=== PATIENT | male | born 1975 | race Caucasian/White ===

== ENCOUNTER → 2021-02-06 10:11 | Outpatient (CLI) | payer OTHER, SELFPAY ==
--- NOTE | ~2021-02-06 | XR_ITS ---
XR_[id number]_CR 02/06/2021 10:57 Indication: Neck pain Procedure: 4 view cervical spine Comparison: 07/21/2013 Findings: Vertebral body heights are maintained. There is mild disc narrowing at at C6-7. There is mi ld multilevel uncinate hypertrophy. Lung apices are normal. Odontoid process within normal limits. La teral masses normally aligned. No prevertebral soft tissue swelling. Impression: 1: Mild cervical spondylosis. Reviewed, dictated and finalized at location A. Impression: 1: Mild cervical spondylosis.
== END ==
PROVIDERS: PCP Family Medicine; Visit Provider Physician Assistant Medical
DX: M47.22 Other spondylosis with radiculopathy, cervical region (principal)
CPT/HCPCS: 72040

== ENCOUNTER 2024-06-08 08:56 | Day surgery (SDC) | payer OTHER, SELFPAY ==
[2024-06-08] VITALS (16 sets, daily range): BP systolic 94–193; BP diastolic 58–182; PULSE 66–97; RESP 10–22; TEMP 36.1–36.4; O2SAT 94–100
--- NOTE | ~2024-06-08 | CT_ITS ---
EXAMINATION: CT abdomen pelvis wo con DATE: 06/08/2024 10:23 INDICATION: Left flank pain. Left lower quadrant abdominal pain. TECHNIQUE: Computed tomography (CT) of the abdomen and pelvis was performed without intravenous contr ast. Automated exposure control and iterative reconstruction technique were employed. The dose-length product was 202.87 mGy-cm. COMPARISON: CT abdomen and pelvis 10/04/2019 FINDINGS: The visualized portions of lung bases are clear without pneumonia or pleural effusion. The heart size is normal. No pericardial effusion. There is diffuse hepatic steatosis. The gallbladder, s pleen, pancreas, adrenal glands, and right kidney are normal. There is mild left hydronephrosis. Ther e is a 3 mm stone in proximal left ureter. The prostate is mildly enlarged. There are no dilated loop s of bowel. The appendix is normal. There are no pathologically enlarged lymph nodes. There is no alyssa e intraperitoneal fluid. There is thoracolumbar dextroscoliosis. IMPRESSION: 1. 3 mm stone in proximal left ureter with mild left hydronephrosis. Reviewed, dictated and finalized at location A.
--- NOTE | ~2024-06-08 | XR_ITS ---
XR abdomen/kub 1V Ordering provider: Anjali Tinsley PA-C History: . proximal KIDNEY stone . Comparison: None. FINDINGS: BOWEL: Nonobstructive bowel gas pattern. ORGANOMEGALY: None. SIGNIFICANT PATHOLOGIC CALCIFICATIONS: Possible tiny calcifications in the right kidney. OTHER: No free air is seen under the diaphragm. IMPRESSION: NO ACUTE ABDOMINAL FINDINGS. Reviewed, dictated and finalized at location A.
--- NOTE | ~2024-06-08 | XR_ITS ---
EXAMINATION: XR retrograde pyelo w/stent LT DATE: 06/08/2024 13:50 INDICATION: Left ureteral stone TECHNIQUE: 5 fluoroscopic images of the abdomen and pelvis were obtained during procedure performed anselmo Boyer. Radiologist was not present for the imaging or procedure. The amount of fluoroscopy t barbra used during this procedure was 0.8 minutes. COMPARISON: 06/08/2024 FINDINGS: Small density projects over the left transverse process of L2 on the glass or mirror inspector image potentially represen ting the previous noted left ureteropelvic junction stone. Subsequent images demonstrate retrograde a dvancement of a catheter and wire into the left ureter with the wire extending into an upper pole kacey yx of the left kidney. Contrast injection demonstrates mild left hydronephrosis with abrupt transitio n to decompressed ureter at the ureteropelvic junction likely resulting from the obstructing stone wh ich is unable to be distinguished from the injected contrast. Final image demonstrates placement of a left intraureteral stent with loops formed in the left renal pelvis. The stone is no longer identifi ed sided been extracted or obscured by the contrast. Correlate with procedure note for further detail . IMPRESSION: 1. Fluoroscopy utilized during urologic procedure with possible left UPJ stone extraction and placeme nt of a left intraureteral stent which is in expected position. See procedure note for further detail . Reviewed, dictated and finalized at location A. IMPRESSION: 1. Fluoroscopy utilized during urologic procedure with possible left UPJ stone extraction and placement of a left intraureteral stent which is in expected pos ition. See procedure note for further detail.
--- NOTE | 2024-06-08 09:32 | ED.GENADULT ---
HPI - General Adult General Chief complaint: Urogenital-Male Stated complaint: kidney stone Time Seen by Provider: 06/08/24 09:19 Source: patient Mode of arrival: ambulatory Limitations: no limitations History of Present Illness HPI narrative: Patient is a 49 y/o male who presents to the ED with c/o L flank pain. Patient reports pain began approx 30-35 minutes prior to arrival. Radiates into his L lower abdomen and into his groin/testicle. Has not taken anything for pain. Denies history of similar pain. Denies history of kidney stones. Reports nausea, denies vomiting. Denies fevers. Denies difficulty urinating, states he urinated this morning when he woke up without issue. Denies known hematuria. Related Data Home Medications Medication Instructions Recorded Confirmed sertraline 50 mg tablet 75 mg PO DAILY 12/25/21 12/25/21 Allergies Allergy/AdvReac Type Severity Reaction Status Date / Time fluoxetine Allergy Unknown Unknown Verified 06/08/24 10:16 vilazodone [Viibryd] AdvReac Unknown nausea, Verified 06/08/24 10:16 skin crawling, fatigue Review of Systems Review of Systems: All systems reviewed & are unremarkable except as noted in HPI. All systems reviewed & are unremarkable except as noted in HPI and below PMFSH Social History Social History Smoking status: Never smoker Alcohol intake: never Exam Narrative: GENERAL: Uncomfortable appearing, in moderate acute distress due to pain. Pacing around the ED room, unable to sit still or find comfortable position. HEAD: Normocephalic, atraumatic. RESPIRATORY: Airway patent, respirations nonlabored. Clear to auscultation bilaterally, no rales, rhonchi, wheezing. CARDIOVASCULAR: Tachycardic with regular rhythm without murmurs, rubs, or gallops. ABDOMINAL: Soft, TTP in LLQ, L flank region, +CVA tenderness. MUSCULOSKELETAL: Moves all extremities. No gross deformities. SKIN: Warm, dry, normal color. NEURO: A&O X3. Speech clear. PSYCHIATRIC: Anxious. Normal interaction. Course Vital Signs Vital signs: Vital Signs Pulse Rate 97 06/08/24 09:04 Respiratory Rate 18 06/08/24 09:04 Blood Pressure 193/182 H 06/08/24 09:04 Pulse Oximetry 99 06/08/24 09:04 Temperature 97.2 F L 06/08/24 12:50 Pulse Rate 76 06/08/24 12:50 Respiratory Rate 18 06/08/24 12:50 Blood Pressure 138/83 06/08/24 12:50 Pulse Oximetry 97 06/08/24 12:50 Oxygen Delivery Room Air 06/08/24 12:50 Oxygen Flow Rate 4 06/08/24 12:17 Medical Decision Making MDM Narrative Medical decision making narrative: patient presented to ED with moderate left flank and left-sided abdominal pain, onset approximately 30minutes-1 hour prior to arrival. Patient very uncomfortable appearing upon my evaluation. Unable to sit still on ED stretcher due to pain. Pacing around. Patient denies history of kidney stones, though this is my clinical suspicion. Pain and nausea medicine ordered. Laboratory studies are unremarkable. No leukocytosis. Stable kidney function. Unable to obtain a urine sample at this time due to patient's pain. Patient has required numerous doses of IV pain medicine. Denying significant improvement of pain. Still very uncomfortable appearing. CT scan of abdomen/ pelvis was obtained and showing 3 mm proximal ureteral stone. Mild hydronephrosis noted. Consistent with clinical picture. Given severe pain, discussed case with Urology, Rand Rodriguez SAND CONDITIONER MACHINE, advised will take patient to the OR today. Keep NPO. Obtain KUB. Patient in agreement with plan and surgery. Medical Records Medical records reviewed: Yes I reviewed the external patient's medical records. Vital Signs Vital Signs: Vital Signs Pulse Rate 97 06/08/24 09:04 Respiratory Rate 18 06/08/24 09:04 Blood Pressure 193/182 H 06/08/24 09:04 Pulse Oximetry 99 06/08/24 09:04 Tem
[2024-06-08 09:37] LABS: Basophils Absolute Auto 0.1 K/mm3 (0.0-0.1); Eosinophils Absolute Auto 0.2 K/mm3 (0-0.3); Eosinophils Percent Auto 3.1 % (0-4.4); Hematocrit 43.4 % (42.0-52.0); Hemoglobin 15.2 g/dL (14.0-18.0); Immature Granulocyte Absolute 0.04 K/mm3 (0.00-0.031); Immature Granulocyte Percent A 0.6 % (0-0.5); Lymphocytes Percent Auto 35.5 % (18.3-44.2); Mean Corpuscular Hemoglobin 29.5 pg (26-34); Mean Corpuscular Volume 84.1 fl (80-100); Mean Platelet Volume 9.3 fl (7.4-10.4); Monocytes Absolute Auto 0.6 K/mm3 (0.1-0.6); Neutrophils Absolute Auto 3.2 K/mm3 (1.3-6.7); Neutrophils Percent Auto 50.8 % (45.5-73.1); Platelet Count Result 233 k/mm3 (150-375); Red Blood Count 5.16 M/mm3 (4.6-6.20); Red Cell Distribution Width 11.9 % (11.5-14.5); White Blood Count 6.2 K/mm3 (4.5-10.0)
[2024-06-08] MEDS: HYDROmorphone HCL INJ (*CRX) 1 MG/ML SYR IV PUSH ×3 (09:38→11:30)
[2024-06-08] MEDS: ONDANSETRON INJ 4 MG/2 ML VIAL IV PUSH ×2 (09:38→12:56)
[2024-06-08] MEDS: SODIUM CHLORIDE 0.9% IV 1,000 ML 999 ML IV CONT ×2 (09:40→10:48)
[2024-06-08 09:51] LABS: Anion Gap 12 mmol/L (4-12); Blood Urea Nitrogen 10 mg/dL (9-20); Calcium 9.2 mg/dL (8.4-10.2); Carbon Dioxide 24 mmol/L (22-30); Chloride 96 mmol/L (98-107); Estimated CRCL calculation 66 ml/min; Estimated Glomerular Filt Rate 59; Glucose 111 mg/dL (65-110); Potassium 4.1 mmol/L (3.4-5.0); Sodium 132 mmol/L (137-145)
--- NOTE | 2024-06-08 10:00 | PC.NURSE ---
FORMULA ROOM WORKER AT BEDSIDE TO COLLECT URINE SAMPLE; PT STATES I CAN'T EVEN THINK TO SIT STILL LET ALONE THINK TO PEE FORMULA ROOM WORKER OFFERED TO STRAIGHT CATH PT TO COLLECT URINE ANALYSIS - PT DECLINES AND STATES HE WILL TRY TO URINATE SOON.
[2024-06-08] MEDS: MORPHINE SULFATE (*CRX) 4 MG/ML INJ IV PUSH (10:03)
[2024-06-08] MEDS: TAMSULOSIN HCL 0.4 MG CAPSULE PO (10:48)
--- NOTE | 2024-06-08 12:01 | WPDHPUPDATE1 ---
History and Physical Update Update Date/Time: 06/08/24 12:01 History and Physical has been reviewed, including an updated exam of the patient. There are NO changes in the patient's condition. Risks, benefits, and alternatives have been discussed and questions answered. Patient agrees to proceed with procedure. Proceed with cystoscopy, left retrograde, left stent placement, possible ureteroscopy with stone extraction laser
--- NOTE | 2024-06-08 12:35 | PC.NURSE ---
pt was asked to pee. pt was only able to get a drible.
--- NOTE | 2024-06-08 12:47 | WPDURCON ---
Assessment and Plan Assessment and plan (1) Left ureteral stone: Code(s): N20.1 - Calculus of ureter Status: Acute Assessment and Plan: 3 mm proximal left ureteral stone. Given uncontrolled pain, will proceed with cystoscopy, left ureteroscopy with possible laser lithotripsy/stone extraction, possible left stent placement this afternoon with Dr. Boyer. Discussed procedure with patient and he is agreeable to proceed. Continue NPO diet and analgesics. Urology Consult Note HPI Date Seen: 06/08/24 Requesting Physician: Del Boyer MD Primary Care Provider: Jayme Tenorio, Consult Narrative Narrative: Juan Carlos Perez is a 49 year old male with no prior urologic history who presented to the ER this morning due to sudden onset of left flank pain around 8:30 am. Reports pain started in his back and radiated to his left side and groin. He had associated dry heaves but no vomiting, fever, or chills. Denies dysuria or hematuria. On arrival to the ER, his vital signs were stable and he was afebrile. WBc within normal limits at 6.2. Creatinine 1.3. He has been unable to give a urine sample as of yet. A CT of his abd/pelvis was completed which demonstrated a 3 mm stone in the proximal left ureter with mild left hydronephrosis. Despite analgesics, his pain has been uncontrolled. He is writhing in pain at the time of my evaluation. Review of Systems Review of Systems: All systems reviewed & are unremarkable except as noted in HPI and below [facility] Social History Social History Smoking status: Never smoker Alcohol intake: never Meds Home Medications and Allergies Home Medications Medication Instructions Recorded Confirmed Type sertraline 50 mg tablet 75 mg PO DAILY 12/25/21 12/25/21 History budesonide-formoterol HFA 160 2 inh inhalation BID #10.2 grams 02/01/22 Rx mcg-4.5 mcg/actuation aerosol inhaler (Symbicort) Allergies Allergy/AdvReac Type Severity Reaction Status Date / Time fluoxetine Allergy Unknown Unknown Verified 06/08/24 10:16 vilazodone [Viibryd] AdvReac Unknown nausea, Verified 06/08/24 10:16 skin crawling, fatigue Vital Signs Vital Signs - 24 hr 06/08/24 09:21 06/08/24 09:04 06/08/24 10:56 Temperature 97.5 F L Pulse Rate 90 97 79 Respiratory Rate 18 18 19 Blood Pressure 193/182 H 123/84 Pulse Oximetry 99 99 100 Oxygen Delivery Room Air Oxygen Flow Rate 06/08/24 12:17 06/08/24 11:52 06/08/24 12:01 Temperature Pulse Rate 77 74 Respiratory Rate 22 H 19 Blood Pressure 135/90 127/83 Pulse Oximetry 98 100 99 Oxygen Delivery Nasal Cannula Oxygen Flow Rate 4 06/08/24 12:16 Temperature Pulse Rate 82 Respiratory Rate 21 H Blood Pressure 129/86 Pulse Oximetry 100 Oxygen Delivery Oxygen Flow Rate Exam Narrative: General: Awake, alert, acutely uncomfortable, writhing in pain HEENT: Normocephalic, atraumatic, sclerae anicteric Respiratory: Normal respiratory effort, no accessory muscle use Abdomen: Nondistended, soft Skin: Normal coloration, warm and dry Neurologic: No focal neuro deficits noted Psychiatric: Appropriate mood and affect, judgment and insight intact Results Labs 06/08/24 09:30 06/08/24 09:30 Labs: Short CBC 06/08/24 Range/Units 09:30 WBC 6.2 (4.5-10.0) K/mm3 Hgb 15.2 (14.0-18.0) g/dL Hct 43.4 (42.0-52.0) % Plt Count 233 (150-375) k/mm3 [facility] 06/08/24 09:30 Sodium 132 L Potassium 4.1 Chloride 96 L Carbon Dioxide 24 BUN 10 Creatinine 1.30 Glucose 111 H Calcium 9.2
[2024-06-08] MEDS: LACTATED RINGERS 1,000 ML 30 ML IV CONT ×2 (12:50→15:24)
[2024-06-08] MEDS: HYDROmorphone HCL INJ (*CRX) 1 MG/ML SYR 0.25 MG IV PUSH (12:55)
--- NOTE | 2024-06-08 13:06 | WPDANESEPPF ---
Anes - Initial Pre Proc Eval Procedure: Operation Date: 06/08/24 13:30 Proposed Procedures p Cystoscopy, Left Ureteroscopy, Possible Left Retrograde Pyelogram, Possible Left Stone Extraction, Possible Left Stent Placement, Possible Holmium Laser - Del Boyer MD Date/Time: 06/08/24 13:06 Surgeon: Del Boyer MD Pre Op Diagnosis: kidney stone Patient Data Age: 49 Gender: M Height: 1.8 m Weight: 90.7 kg Last Vital Signs Temp 97.5 F L 06/08/24 09:21 Pulse 82 06/08/24 12:16 Resp 21 H 06/08/24 12:16 BP 129/86 06/08/24 12:16 Pulse Ox 98 06/08/24 12:17 O2 Del Method Nasal Cannula 06/08/24 12:17 O2 Flow Rate 4 06/08/24 12:17 Allergies Allergy/AdvReac Type Severity Reaction Status Date / Time fluoxetine Allergy Unknown Unknown Verified 06/08/24 10:16 vilazodone [Viibryd] AdvReac Unknown nausea, Verified 06/08/24 10:16 skin crawling, fatigue Home Medications Medication Instructions Recorded Confirmed Type sertraline 50 mg tablet 75 mg PO DAILY 12/25/21 12/25/21 History budesonide-formoterol HFA 160 2 inh inhalation BID #10.2 grams 02/01/22 Rx mcg-4.5 mcg/actuation aerosol inhaler (Symbicort) Laboratory Tests 06/08/24 09:30 WBC 6.2 K/mm3 (4.5-10.0) RBC 5.16 M/mm3 (4.6-6.20) Hgb 15.2 g/dL (14.0-18.0) Hct 43.4 % (42.0-52.0) MCV 84.1 fl (80-100) MCH 29.5 pg (26-34) MCHC 35.0 g/dl (32-36) RDW 11.9 % (11.5-14.5) Plt Count 233 k/mm3 (150-375) MPV 9.3 fl (7.4-10.4) Immature Gran % (Auto) 0.6 H % (0-0.5) Neut % (Auto) 50.8 % (45.5-73.1) Lymph % (Auto) 35.5 % (18.3-44.2) Knox % (Auto) 9.0 H % (2.6-8.5) Eos % (Auto) 3.1 % (0-4.4) Baso % (Auto) 1.0 % (0.2-1.2) Lymph # (Auto) 2.20 K/mm3 (0.9-3.2) Knox # (Auto) 0.6 K/mm3 (0.1-0.6) Eos # (Auto) 0.2 K/mm3 (0-0.3) Baso # (Auto) 0.1 K/mm3 (0.0-0.1) Abs Immat Gran (auto) 0.04 H K/mm3 (0.00-0.031) Absolute Neuts (auto) 3.2 K/mm3 (1.3-6.7) Absolute Nucleated RBC 0.000 K/mm3 (0.0-0.012) Nucleated RBC % 0.0 % (0.0-0.2) Sodium 132 L mmol/L (137-145) Potassium 4.1 mmol/L (3.4-5.0) Chloride 96 L mmol/L (98-107) Carbon Dioxide 24 mmol/L (22-30) Anion Gap 12 mmol/L (4-12) BUN 10 mg/dL (9-20) Creatinine 1.30 mg/dL (0.7-1.3) Estim Creat Clear Calc 66 ml/min Estimated GFR 59 (59 - ) Glucose 111 H mg/dL (65-110) Calcium 9.2 mg/dL (8.4-10.2) Patient hx anesthesia problems: other (Pt reports that he woke up during sedation for wisdom teeth and colonoscopy a long time ago. ) Family hx anesthesia problems: none Results Review: All pre-operative results and documents have been reviewed as part of the pre-operative evaluation. [facility] Social History Social History Smoking status: Never smoker Alcohol intake: never Anes - Eval Final PreProcedure Day of Procedure 06/08/24 13:06 Patient weight: overweight Heart: regular rate and rhythm Lungs: clear to auscultation Airway: Mallampati scale class II Neurological: alert and oriented Last oral intake: >/= 8 hours ASA classification: III Emergent: yes Anesthetic plan: proceed Anesthesia type and monitoring: general ETT and standard monitoring Results Review: All pre-operative results and documents have been reviewed as part of the pre-operative evaluation. BRENDAN on CPAP setting 12. Pt w sig pain in ER and preop area despite IV narcotics and now on O2 4 L NC. Informed Consent: The patient's anesthetic plan and its attendant risks and benefits were discussed with the patient/family/POA. Questions were solicited and answers provided to the satisfaction of the patient/family/POA.
[2024-06-08] MEDS: LIDOCAINE HCL 2% GEL UROJET 10 ML PKG MUCOUS MEM (13:12)
[2024-06-08] MEDS: ceFAZolin 2 GM/D5W 50 ML 2 GM/50 ML BAG IVPB (13:26)
--- NOTE | 2024-06-08 13:46 | W.PM.PROC2 ---
Procedure Note - Detailed Date of Procedure 06/08/24 Pre-op Diagnosis left ureteral calculus Post-op Diagnosis Same Procedure Performed Cystoscopy, left retrograde pyelogram, left ureteroscopy, left ureteral stent placement 4.8 Congolese contour Surgeon Del Boyer MD Anesthesia General Findings Extremely tight distal and proximal ureter. Unable to place ureteral scope to the level of the stone Description of Procedure Patient was taken to the operative suite correctly identified. Once anesthesia was obtained was placed in dorsal lithotomy position and prepped and draped usual sterile fashion. Nineteen Congolese scope was inserted the bladder direct vision there were no urethral strictures. Bladder was inspected. No tumors noted. Left ureteral orifice was cannulated with a guidewire. Rigid ureteral scope was then inserted into the distal orifice. His distal ureter was also tight we could not manipulate the scope further. At this point a ureteral access sheath was placed. Mini flexible ureteral scope was then inserted. This proximal ureter was also extremely tight to the point where I could not manipulate the scope to the level of the stone. I placed a 2nd guidewire and tried to pass the scope over the wire but this also was unsuccessful. At this point it was decided that it was best to simply place a stent and dilate the ureter. Pyelogram was performed confirm placement the stent. 4.8 Congolese contour stent was then placed with the proximal end coiled in the renal pelvis and the distal in the bladder. Bladder was drained. 2% viscous lidocaine was inserted into the urethra patient is taken recovery stable condition. Patient will be discharged home with pain meds antibiotics and something for spasms. Will plan on ureteroscopy in a week or 2. This completes dictation please send a copy of op note to my office Estimated Blood Loss 0 Drains Yes Packing No Pathology None sent Complications No immediate complications Condition Stable Disposition PACU
[2024-06-08] MEDS: KETOROLAC 30 MG/ML VIAL (*BKC) IV PUSH (15:24)
[2024-06-08] MEDS: oxyBUTYnin CHLORIDE 5 MG TABLET PO (15:24)
== END 2024-06-08 16:30 | disposition home or self-care (01) ==
LOC: ANHED 12:02 → ANHSURGERY 12:13
PROVIDERS: Emergency Provider Physician Assistant; PCP Family Medicine; Visit Provider Urology
PROC: (CPT 52352; principal; 2024-06-08 13:30)
DX: N13.2 Hydronephrosis with renal and ureteral calculous obstruction (principal); Z79.51 Long term (current) use of inhaled steroids
CPT/HCPCS: 52332; 36415; 74018; 74176; 74420; 80048; 85025; 96361; 96374; 96375; 96376; 99285; A9270; C1769; C1894; C2617; J0330; J0690; J1170; J1885; J2250; J2270; J2405; J2704; J3010; J7030; J7120; Q9966

== ENCOUNTER 2024-06-12 07:43 | Outpatient (CLI) | payer OTHER, SELFPAY | END 2024-06-12 07:44 | disposition home or self-care (01) | LOC: ANHLAB 07:45 | PROVIDERS: PCP Family Medicine; Visit Provider Urology | DX: N20.1 Calculus of ureter (principal) | CPT/HCPCS: 87086 ==

== ENCOUNTER 2024-06-15 01:53 | Day surgery (SDC) | payer OTHER, SELFPAY ==
[2024-06-11 15:04] VITALS: BMI 27.9
--- NOTE | 2024-06-11 15:10 | PC.NURSE ---
Report to the Outpatient Waiting Room, entrance under the green pavilion located off [facility], at time _0730_ on date _[id number]_. Planned Procedure Time: _0930_.? Time changes happen often and if your time is changed the preop area will call you the afternoon before. - You and your visitor will be asked to self-screen and do not enter if you have any COVID symptoms. Please call surgeon if you need to reschedule. - A mask is optional within the hospital at this time. Patients may have clear liquids (water, carbonated beverages, clear teas, apple juice) until 3 hours prior to surgery with a maximum of 20 ounces. - No food from midnight until time of surgery and no smoking Take only the following medications with a SIP of water on the morning of surgery: ___Pain med if needed DO NOT STOP ANY OF YOUR OTHER PRESCRIPTION MEDICATIONS PRIOR TO SURGERY EXCEPT THE FOLLOWING Medications to discontinue per physician None Please no make-up, nail mongolian, hairspray, perfume, deodorant, or body powder the day of surgery.? No jewelry (including any body piercings) or valuables the day of surgery, leave them at home.? Please take a shower or bath the night before, or the morning of, surgery with an antibacterial soap.? Wear comfortable, loose fitting clothing.? - Jewelry must be removed prior to entering the operating room.? Rings and piercings that are not removed may be cut off. - The hospital will not accept responsibility for valuables.? - Please leave all valuables, including medications, at home the day of surgery. If you are going home after surgery, a licensed lokie driver must drive you home.? - NO public transportation without another adult if you receive anesthesia. - We recommend that an adult stay with you for 24 hours following discharge. - We also recommend that you do not drive, make important decision, drink alcoholic beverages, or take any drugs that were not prescribed by your health care provider for at least 24 hours after your discharge time. Follow any additional instructions given to you from your surgeon. Telephone instructions given to __TJ___and asked if any additional questions and then verbalized understanding. Patient advised to call surgeon office or pre surgery nurse liaison [phone] if any additional questions.
[2024-06-15] VITALS (7 sets, daily range): BP systolic 107–135; BP diastolic 71–87; PULSE 53–80; RESP 10–20; TEMP 36.2–36.3; O2SAT 98–100; BMI 27.0
--- NOTE | ~2024-06-15 | XR_ITS ---
EXAMINATION: XR retrograde pyelo w/stent LT DATE: 06/15/2024 9:00 CDT INDICATION: LEFT SIDE STONE, RETRO STENT EXCHANGE . TECHNIQUE: 4 fluoroscopic images of the upper abdomen were obtained during left retrograde pyelograph y and stent exchange, performed by Del Boyer MD. I was not present during the procedure. Fluoroscopy exposure time was 16.1 seconds. Air Kerma 5.40 mGy. DAP 0.48569 mGym2. COMPARISON: 06/08/2024 FINDINGS/IMPRESSION: Fluoroscopic documentation of left retrograde pyelography and stent exchange. Please refer to the ope rative note for complete procedural details . Reviewed, dictated and finalized at location K.
[2024-06-15] MEDS: LACTATED RINGERS 1,000 ML 30 ML IV CONT ×2 (07:30→09:49)
--- NOTE | 2024-06-15 08:34 | WPDHPUPDATE1 ---
History and Physical Update Update Date/Time: 06/15/24 08:34 History and Physical has been reviewed, including an updated exam of the patient. There are NO changes in the patient's condition. Risks, benefits, and alternatives have been discussed and questions answered. Patient agrees to proceed with procedure. Proceed with cystoscopy, left retrograde pyelogram, left ureteroscopy with stone extraction, stent exchange
--- NOTE | 2024-06-15 08:50 | WPDANESEPPF ---
Anes - Initial Pre Proc Eval Procedure: Operation Date: 06/15/24 09:30 Proposed Procedures p Cystoscopy, Left Ureteroscopy, Possible Left Retrograde Pyelogram, Possible Left Stone Extraction, Left Stent Removal/Exchange, Possible Holmium Laser - Del Boyer MD Date/Time: 06/15/24 08:50 Surgeon: Del Boyer MD Pre Op Diagnosis: left ureteral stone Patient Data Age: 49 Gender: M Height: 1.8 m Weight: 87.9 kg Last Vital Signs Temp 97.4 F L 06/15/24 07:30 Pulse 72 06/15/24 07:30 Resp 20 06/15/24 07:30 BP 123/80 06/15/24 07:30 Pulse Ox 99 06/15/24 07:30 O2 Del Method Room Air 06/15/24 07:30 Allergies Allergy/AdvReac Type Severity Reaction Status Date / Time fluoxetine Allergy Unknown Unknown Verified 06/11/24 15:02 vilazodone [Viibryd] AdvReac Unknown nausea, Verified 06/11/24 15:02 skin crawling, fatigue Home Medications Medication Instructions Recorded Confirmed Type sertraline 50 mg tablet 75 mg PO DAILY 12/25/21 06/11/24 History oxybutynin chloride 5 mg tablet 5 mg PO TID PRN bladder spasms #60 06/08/24 06/11/24 Rx tabs tramadol 50 mg tablet 50 mg PO Q6H PRN pain #20 tabs 06/08/24 06/11/24 Rx budesonide-formoterol HFA 160 2 inh inhalation BID PRN Dyspnea 06/11/24 06/11/24 History mcg-4.5 mcg/actuation aerosol inhaler (Symbicort) Patient hx anesthesia problems: none Family hx anesthesia problems: none Results Review: All pre-operative results and documents have been reviewed as part of the pre-operative evaluation. [facility] Social History Social History Smoking status: Never smoker Alcohol intake: never Living arrangements: with family Spiritual care concerns: No Anes - Eval Final PreProcedure Day of Procedure 06/15/24 08:50 Patient weight: overweight Heart: regular rate and rhythm Lungs: clear to auscultation Airway: Mallampati scale class II Neurological: alert and oriented Last oral intake: >/= 8 hours ASA classification: III Emergent: no Anesthetic plan: proceed Anesthesia type and monitoring: general LMA and standard monitoring Results Review: All pre-operative results and documents have been reviewed as part of the pre-operative evaluation. BRENDAN on CPAP setting of 12. Pt feels well today, no N/V or pain. Informed Consent: The patient's anesthetic plan and its attendant risks and benefits were discussed with the patient/family/POA. Questions were solicited and answers provided to the satisfaction of the patient/family/POA.
[2024-06-15] MEDS: ceFAZolin 2 GM/D5W 50 ML 2 GM/50 ML BAG IVPB (09:00)
--- NOTE | 2024-06-15 09:43 | P.OP_ITS ---
Procedure Note - Detailed Date of Procedure 06/15/24 Pre-op Diagnosis left ureteral stone Post-op Diagnosis Other (Stone flushed into lower pole calyx) Procedure Performed Cystoscopy, left retrograde pyelogram, left ureteroscopy, left stent exchange Surgeon Del Boyer MD Anesthesia General Description of Procedure Patient is taken the operative suite correctly identified. Once anesthesia was obtained was placed in dorsal lithotomy position and prepped and draped usual sterile fashion. Nineteen Albanian scope was inserted the bladder. The prior stent was grasped brought out the meatus. Guidewire was inserted through that up to the kidney. Ureteral access sheath was then placed. Mini flexible ureteral scope was inserted. His proximal ureter still somewhat tight but I was still able to manipulate ureteral scope past the proximal ureter into the kidney. I inspected all the calices. It is difficult to get into the lower pole calyx where a small little calcification was seen attached to the papillae. I tried to use a 0 degree basket to retrieve it was a deepthi 6s full. Could not manipulate the scope enough to get to the stone. At this point the procedure was terminated. 4.8 Albanian contour stent was then replaced after a pyelogram was performed to confirm placement. 2% viscous lidocaine was inserted urethra patient is taken recovery stable condition. At this point time will simply recommend removing the stent next week. If the stone becomes symptomatic again with will need to be readdressed hopefully in the ureter. This completes dictation. Please send a copy of op note to my office. Drains Yes Packing No Pathology None sent Complications No immediate complications Condition Stable Disposition PACU
--- NOTE | 2024-06-15 10:13 | SUR.PHASEI ---
Simple mask removed at 1010.
== END 2024-06-15 11:21 | disposition home or self-care (01) ==
PROVIDERS: PCP Family Medicine; Visit Provider Urology
PROC: (CPT 52352; principal; 2024-06-15 09:30)
DX: N20.1 Calculus of ureter (principal); Z79.51 Long term (current) use of inhaled steroids; Z79.891 Long term (current) use of opiate analgesic
CPT/HCPCS: 52332; 74420; C1769; C2617; J0690; J1100; J2003; J2250; J2405; J2704; J3010; J7120; Q9966

== ENCOUNTER 2025-05-04 11:36 | Emergency (ER) | payer OTHER, SELFPAY ==
--- NOTE | ~2025-05-04 | CT_ITS ---
EXAMINATION: CT abd pelvis lumbar wo con DATE: 05/04/2025 13:27 INDICATION: Flank pain. TECHNIQUE: Computed tomography (CT) of the abdomen and pelvis was performed without intravenous contrast. The dose-length product was 599.63 mGy-cm. COMPARISON: CT abdomen pelvis 10/04/2019 and 06/08/2024 FINDINGS: There is a 8 mm subpleural nodule in the right lower lobe and two less than 3 mm pulmonary nodules in the right lower lobe. A chest CT is recommended. Liver, spleen, adrenal glands, pancreas and gallbladder are unremarkable. No renal calculi. No hydronephrosis. Abdominal aorta is not aneurysmal. No free fluid in the abdomen. Bladder is unremarkable. No bladder calculi. No enlarged lymph nodes in the pelvis. Moderate amount of stool. No appendicitis. Mild thickening of the nguyen of the ascending colon. No compression fracture identified in the visualized spine. IMPRESSION: 1. Mild thickening of the nguyen of the ascending colon differential includes incomplete bowel wall distention or colitis. 2.There is a 8 mm subpleural nodule in the right lower lobe and two less than 3 mm pulmonary nodules in the right lower lobe. A chest CT is recommended. EXAMINATION: CT abd pelvis lumbar wo con DATE: 05/04/2025 13:35 CDT INDICATION: Flank pain TECHNIQUE: Computed tomography (CT) of the lumbar spine was performed without intravenous contrast. The dose-length product was 599.63 mGy-cm. COMPARISON: None FINDINGS: Lumbar vertebral body heights and alignment are within normal limits. No compression fracture in the lumbar spine. No sclerotic or destructive bone lesion identified. Evaluation of the spinal canal contents and bilateral neural foramen is limited due to CT technique. IMPRESSION: 1. No fracture in the lumbar spine. If symptoms persist or worsen, consider an MRI of the lumbar spine for further assessment. Reviewed, dictated and finalized at location A. IMPRESSION: 1. Mild thickening of the nguyen of the ascending colon differential includes in complete bowel wall distention or colitis. 2.There is a 8 mm subpleural nodule in the right lower lobe and two less than 3 mm pulmonary nodules in the right lower lobe. A chest CT is recommended. EXAMINATION: CT abd pelvis lumbar wo con DATE: 05/04/2025 13:35 CDT INDICATION: Flank pain TECHNIQUE: Computed tomography (CT) of the lumbar spine was performed without i ntravenous contrast. The dose-length product was 599.63 mGy-cm. COMPARISON: None FINDINGS: Lumbar vertebral body heights and alignment are within normal limits. No compre ssion fracture in the lumbar spine. No sclerotic or destructive bone lesion kailey ntified. Evaluation of the spinal canal contents and bilateral neural foramen is limited due to CT technique.
--- OUTSIDE RECORDS SUMMARY | 2025-05-04 09:27 | XMS_ITS | Encounter Summary ---
Author Organization [facility] Address [address] [place] [address] Care Team Providers Care Excavating Supervisor Name Role Phone Jayme Tenorio MD Primary Care Provider [phone] Aziza Wheat NP Unavailable [phone] Gera Rea MD Unavailable [phone] Del Boyer MD Unavailable [phone] Reason for Referral * Diagnostic Imaging (Routine) - Pending Review Specialty Diagnoses / Procedures Referred By Contac t Referred To Contact Diagnoses Right-sided low back pain with bilateral sciatica, unspecified chronicity Procedures XR Spine Lumbar Ap Lat Flex Ext min 4 Views [facility] [address] [place] [address] Phone: tel: fax: [place] [address] Referral ID Status Reason Start Date Expiration Date V isits Requested Visits Authorized [id number] Pending Review 05/04/2025 06/03/2026 1 1 Reason for Visit * Diagnostic Imaging (Routine) - Pending Review Specialty Diagnoses / Procedures Referred By Contac t Referred To Contact Diagnoses Right-sided low back pain with bilateral sciatica, unspecified chronicity Procedures XR Spine Lumbar Ap Lat Flex Ext min 4 Views Vikas Saeed DC [address] [place] [address] Phone: tel: fax: [address] [address] Referral ID Status Reason Start Date Expiration Date V isits Requested Visits Authorized [id number] Pending Review 05/04/2025 06/03/2026 1 1 Encounter Details Date Type Department Care Team (Latest Contact Info) Description 05/04/2025 9:27 AM CDT Hospital Encounter [address] [address] Right-sided low back pain with bilateral sciatica, unspecified chronicity Social History Tobacco Use Types Packs/Day Years Used Date Smoking Tobacco: Never Passive Smoke Exposure: Never Smokeless Tobacco: Never AUDIT-C Answer Date Recorded Q1: How often do you have a drink containing alc ohol? Monthly or less 12/09/2024 Q2: How many drinks containi ng alcohol do you have on a typical day when you are drinking? 1 or 2 12/09/2024 Q3: How often do you have si x or more drinks on one occasion? 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 Not on file Not on file documented as of this encounter Plan of Treatment Pending Results Name Type Priority Associated Diagnoses Date /Time XR Spine Lumbar Ap Lat Flex Ext min 4 Views Imaging Schedule Routine, Read Routine (OP Routine) Right-sided low back pain with bilateral sciatica, unspecified chronicity 05/04/2025 9:42 AM CDT Scheduled Orders Name Type Priority Associated Diagnoses Orde r Schedule XR Spine Lumbar Ap Lat Flex Ext min 4 Views Imaging Schedule Routine, Read Routine (OP Routine) Right-sided low back pain with bilateral sciatica, unspecified chronicity Once for 1 Occurrences starting 05/04/2025 until 05/04/2025 documented as of this encounter Visit Diagnoses Diagnosis Right-sided low back pain with bilateral sciatica, unspecified chronicity documented in this encounter Care Teams Excavating Supervisor Relationship Specialty Start Date End Date Jayme Tenorio MD [address] [facility] [address] [place] [address] PCP - General Family Medicine 03/11/23 Aziza Wheat NP [address] [facility] [address] [place] [address] Nurse Practitioner Nurse Practitioner 03/11/23 Gera Rea MD [address] [place] [address] Referring Physician Gastroenterology 03/11/23 Del Boyer MD [address] [place] [address] Consulting Physician Urology 12/09/24 documented as of this encounter
--- OUTSIDE RECORDS SUMMARY | 2025-05-04 09:27 | XMS_ITS | Encounter Summary ---
Author Organization [facility] Address [address] [place] [address] Care Team Providers Care Dog License Officer Supervisor Name Role Phone Jayme Tenorio MD Primary Care Provider [phone] Aziza Wheat NP Unavailable [phone] Gera Rea MD Unavailable [phone] Del Boyer MD Unavailable [phone] Reason for Referral * Diagnostic Imaging (Routine) - Pending Review Specialty Diagnoses / Procedures Referred By Contac t Referred To Contact Diagnoses Right-sided low back pain with bilateral sciatica, unspecified chronicity Procedures XR Spine Lumbar Ap Lat Flex Ext min 4 Views [facility] [address] [place] [address] Phone: tel: fax: [place] [address] Referral ID Status Reason Start Date Expiration Date V isits Requested Visits Authorized [id number] Pending Review 05/04/2025 06/03/2026 1 1 Reason for Visit * Diagnostic Imaging (Routine) - Pending Review Specialty Diagnoses / Procedures Referred By Contac t Referred To Contact Diagnoses Right-sided low back pain with bilateral sciatica, unspecified chronicity Procedures XR Spine Lumbar Ap Lat Flex Ext min 4 Views Vikas Saeed DC [address] [place] [address] Phone: tel: fax: [address] [address] Referral ID Status Reason Start Date Expiration Date V isits Requested Visits Authorized [id number] Pending Review 05/04/2025 06/03/2026 1 1 Encounter Details Date Type Department Care Team (Latest Contact Info) Description 05/04/2025 9:27 AM CDT Hospital Encounter [address] [address] Right-sided low back pain with bilateral sciatica, [...] 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 Not on file Not [...] chronicity documented in this encounter Care Teams Dog License Officer Supervisor Relationship Specialty Start Date End Date Jayme Tenorio MD [address] [facility] [address] [place] [address] PCP - General Family Medicine 03/11/23 Aziza Wheat NP [address]rena [facility] [address] [place] [address] Nurse Practitioner Nurse Practitioner 03/11/23 Gera Rea MD [address] [place] [address] Referring Physician Gastroenterology 03/11/23 Del Boyer MD [address] [place] [address] Consulting Physician Urology 12/09/24 documented as of this encounter
--- OUTSIDE RECORDS SUMMARY | 2025-05-04 11:45 | XMS_ITS | Encounter Summary ---
Author Organization [facility] Address [address] [place] [address] Care Team Providers Care Manhole Builder Name Role Phone Jayme Tenorio MD Primary Care Provider [phone] Aziza Wheat NP Unavailable [phone] Gera Rea MD Unavailable [phone] Del Boyer MD Unavailable [phone] Encounter Details Date Type Department Care Team (Late st Contact Info) Description 05/04/2025 11:45 AM CDT Office Visit [facility] Primary Care at [address] [address] Jayme Tenorio MD [address] [place] [address] [address] [place] [address] Arrived Social History Tobacco Use Types Packs/Day Years [...] 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 Not on file Not on file documented as of this encounter Plan of Treatment Not on file documented as of this encounter Visit Diagnoses Not on filedocumented in this encounter Care Teams Manhole Builder Relationship Specialty Start Date End Date Jayme Tenorio MD [address] [facility] [address] [place] [address] PCP - General Family Medicine 03/11/23 Aziza Wheat NP [address] [facility] [address] [place] [address] Nurse Practitioner Nurse Practitioner 03/11/23 Gera Rea MD [address] [facility] [address] [place] [address] Referring Physician Gastroenterology 03/11/23 Del Boyer MD [address] [place] [address] Consulting Physician Urology 12/09/24 documented as of this encounter
--- OUTSIDE RECORDS SUMMARY | 2025-05-04 11:45 | XMS_ITS | Encounter Summary ---
Author Organization [facility] Healthcare Address [address] [place] [address] Care Team Providers Care Hand Wrapper Operator Name Role Phone Jayme Tenorio MD Primary Care Provider [phone] Aziza Wheat NP Unavailable [phone] Gera Rea MD Unavailable [phone] Del Boyer MD Unavailable [phone] Encounter Details Date Type Department Care Team (Late st Contact Info) Description 05/04/2025 11:45 AM CDT Office Visit [facility] Primary Care at [address] [address] Jayme Tenorio MD [address] [place] [address] [address] [place] [address] Arrived Social History Tobacco Use [...] 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 Not on file Not on file documented as of this encounter Plan of Treatment Not on file documented as of this encounter Visit Diagnoses Not on filedocumented in this encounter Care Teams Hand Wrapper Operator Relationship Specialty Start Date End Date Jayme Tenorio MD [address] [facility] [address] [place] [address] PCP - General Family Medicine 03/11/23 Aziza Wheat NP [address]rena [facility] [address] [place] [address] Nurse Practitioner Nurse Practitioner 03/11/23 Gera Rea MD [address] [facility] [address] [place] [address] Referring Physician Gastroenterology 03/11/23 Dle Boyer MD [address] [place] [address] Consulting Physician Urology 12/09/24 documented as of this encounter
--- OUTSIDE RECORDS SUMMARY | 2025-05-04 12:06 | XMS_ITS | Patient Health Record ---
Author Organization [facility] [place] Address [address] [facility] [facility] [address] [place] [address] Care Team Providers Care Traction Power Engineer Name Role Phone Jayme Tenorio MD Primary Care Provider Unavail able Aziza Wheat Unavailable [phone] Sean Rojas Unavailable [phone] Allergies No Known Allergies Results Component Value Reference Range Notes UDT Reviewed date:10/19/2024 01:46:28 PM Interpretation: Performing Lab: Notes/Report: THC N 0 - 50 ng/ml Cocaine N 0 - 300 ng/ml Amphetamine N 0 - 1000 ng/ml Buprenorphine (BUP) N 0 - 10 ng/ml Secobarbital (Bar) N 0 - 300 ng/ml Oxazepam (BZO) N 0 - 300 ng/ml 2-ptoeyphmsy-8,6-zciyztxp-0,3-diphenylpyrrolidine (RADHA P) N 0 - 300 ng/ml Methamphetamine (MET) N 0 - 1000 ng/ml Methylenedioxymethamphetamine (MDMA) N 0 - 500 ng/ml Morphine (MOP 300/[id number]) N 0 - 300 ng/ml Methadone (MTD) N 0 - 300 ng/ml Phencyclidine (PCP) N 0 - 25 ng/ml Nortriptyline (TCA) N 0 - 1000 ng/ml Oxycodone N 0 - 300 ng/ml x N 0 - 300 ng/ml Reason For Referral No Information Medications Medication SIG (Take, Route, Frequency, Duration) Notes Start Date End Date Status hydrOXYzine Pamoate 25 MG Capsule 1 capsule Orally three times a day; Duration: 90 days As needed PRN Active Sertraline HCl 50 MG Tablet 1 tablet Ora l Once a day; Duration: 90 days Active Sertraline HCl 25 MG Tablet 1 tablet Ora l Once a day; Duration: 90 days Active Immunizations Vaccine Route Administration Date Status Comme nts Tdap Unknown 06/11/2023 Administered Novel [id number], preservative free Unknown 06/02/2020 Administered Moderna Covid-19 Vaccine 1st dose Unknown 12/11/2020 Ad ministered Social History Tobacco Use: Social History Observation Description Date Details (start date - stop date) Never Smoker NA - NA Sex Assigned At : Social History Observation Description Sex Assigned At Male Social History Miscellaneous: Social Info Question Answer Notes Safety issues: Are there any firearms in the house? Ye s Social History Social Info Question Answer Notes Household: Marital Status: Number of Adults in household: 2 Number of Children in Household: 1 Level of Education: Finished College Household: Social Info Question Answer Notes Household Marital status: Marital status of the child's parents: Any household tobacco use? No Any household pets? Yes Drug/Alcohol: Social Info Question Answer Notes Drugs Have you used drugs other than those for medical reasons in the past 12 months? No AUDIT-C (Standard) Points 2 Did you have a drink containing alcohol in the p ast year? Yes How often did you have six or more drinks on one occasion in the past year? Never (0 point) How many drinks did you have on a typical day when you were drinking in the past year? 1 or 2 drinks (0 point) How often did you have a drink containing alcohol in the past year? Monthly or less (1 point) Tobacco Use: Social Info Question Answer Notes Tobacco Control (Standard) Tobacco use: Nonsmoker Additional Findings: Tobacco non-user Current no nsmoker Additional Details Category Social Info Options Details Miscellaneous: Occupation: Ground Transportation Operator Migrated Social History Migrated Social History Alcohol Intake: None 12/10/2021,Tobacco Years: Never smoker 07/14/2018 Drug/Alcohol: Do you smoke marijuana? Den ies Do you drink alcohol? No Problems Problem Type SNOMED Code ICD Code Onset Dates Problem Status W/U Status Risk Notes Problem Mild recurrent major depression (39933492) Major depressive disorder, recurrent, mild (F33.0) 08/08/20 Active confirmed Problem Generalized anxiety disorder (85438896) Generalized anxiety disorder (F41.1) 08/08/20 Active confirmed Problem Screening for cardiovascular system disease (898040899) Encounter for screening for cardiovascular disorders (Z13.6) Active confirmed Problem Long-term current use of drug therapy (449914506) Other equipment operator intermodal yard (current) drug therapy (Z79.899) 08/08/20 Active confirmed Problem Generalized anxiety disorder (59098649) GEMA (generalized anxiety disorder) (F41.1) Active confirmed Problem Moderate recurrent major depression (32728677) MDD (major depressive disorder), recurrent episode, moderate (F33.1) Active confirmed Problem Panic disorder (402375139) Panic disorder (F41.0) Active confirmed Problem Depression screening negative (652725581261888) Negative depression screening (Z13.31) Active confirmed Vital Signs Heart Rate 72 /min 01/18/2025 Height-cm 180.34 cm 01/18/2025 Blood pressure diastolic 86 mm Hg 01/18/2025 Weight-kg 95.16 kg 01/18/2025 Height 71.00 in 01/18/2025 Blood pressure systolic 124 mm Hg 01/18/2025 Weight 209.8 lbs 01/18/2025 BMI 29.26 kg/m2 01/18/2025 Encounters Encounter Location Date Provider Diagnosis [facility] [place] [address] [place] [address] 10/19/2024 Sean Rojas MDD (major depressiv e disorder), recurrent episode, moderate F33.1 and GEMA (generalized anxiety disorder) F41.1 [facility] [place] [facility] [address] [place] [address] 01/18/2025 Aziza Wheat Negative depression screening Z13.31 ; Major depressive disorder, recurrent, mild F33.0 ; Generalized anxiety disorder F41.1 ; Other equipment operator intermodal yard (current) drug therapy Z79.899 ; Encounter for screening for cardiovascular disorders Z13.6 and Panic disorder F41.0 Assessments Encounter Date Diagnosis (ICD Code) Assessment Notes Treatment Notes Treatment Clinical Notes Section Notes 10/19/2024 GEMA (generalized anxiety disorder) (ICD-10 - F41.1) Assessment and plan reviewed with patient Call for problems with medication, side effects or need for dosage change Compliance issues reviewed Discussed the risks/benefits of this medication Discussed medication side effects Return if symptoms worsen Treatment options reviewed. discussed that it can take weeks to see full therapeutic effects of psychotropic medications. discussed when to seek emergency services. discussed crisis prevention hotline 425. 10/19/2024 MDD (major depressive disorder), recurrent episode, moderate (ICD-10 - F33.1) 01/18/2025 Major depressive disorder, recurrent, mild (ICD-10 - F33.0) 1. depression Sertraline 75 mg daily 2. Anxiety Sertraline 75 mg daily 3. Panic Sertraline 75 mg daily Vistaril 25 mg daily PRN and may take up to three times a day PRN patient reported taken few times educated on all medications, benefits, side effects and risk, and educated on depression, anxiety, and ADHD, mood d/o and educated on compliance of medications, metabolic and movement d/o education appointment is, continue therapy discussion with patient about course of treatment and patient instructions. education on serotonin syndrome SSRI/SNRI side effects discussed including but not limited to, gastric upset, nausea, vomiting, diarrhea and/or constipation, weight changes, sexual side effects including loss of libido, increased suicidal thoughts/behavi ors in children and young adults, and serotonin syndrome. Medication Management and Follow-Up - Plan: - Schedule follow-up appointments every 1-3 months to monitor the patient's response to the medication regimen. - Reinforce the importance of avoiding recreational drug use due to potential neurotoxicity and interactions with prescribed medications. 01/18/2025 Negative depression screening (ICD-10 - Z13.31) 1. depression Sertraline 75 mg daily 2. Anxiety Sertraline 75 mg daily 3. Panic Sertraline 75 mg daily Vistaril 25 mg daily PRN and may take up to three times a day PRN patient reported taken few times educated on all medications, benefits, side effects and risk, and educated on depression, anxiety, and ADHD, mood d/o and educated on compliance of medications, metabolic and movement d/o education appointment is, continue therapy discussion with patient about course of treatment and patient instructions. education on serotonin syndrome SSRI/SNRI side effects discussed including but not limited to, gastric upset, nausea, vomiting, diarrhea and/or constipation, weight changes, sexual side effects including loss of libido, increased suicidal thoughts/behavi ors in children and young adults, and serotonin syndrome. Medication Management and Follow-Up - Plan: - Schedule follow-up appointments every 1-3 months to monitor the patient's response to the medication regimen. - Reinforce the importance of avoiding recreational drug use due to potential neurotoxicity and interactions with prescribed medications. 01/18/2025 Generalized anxiety disorder (ICD-10 - F41.1) 1. depression Sertraline 75 mg daily 2. Anxiety Sertraline 75 mg daily 3. Panic Sertraline 75 mg daily Vistaril 25 mg daily PRN and may take up to three times a day PRN patient reported taken few times educated on all medications, benefits, side effects and risk, and educated on depression, anxiety, and ADHD, mood d/o and educated on compliance of medications, metabolic and movement d/o education appointment is, continue therapy discussion with patient about course of treatment and patient instructions. education on serotonin syndrome SSRI/SNRI side effects discussed including but not limited to, gastric upset, nausea, vomiting, diarrhea and/or constipation, weight changes, sexual side effects including loss of libido, increased suicidal thoughts/behavi ors in children and young adults, and serotonin syndrome. Medication Management and Follow-Up - Plan: - Schedule follow-up appointments every 1-3 months to monitor the patient's response to the medication regimen. - Reinforce the importance of avoiding recreational drug use due to potential neurotoxicity and interactions with prescribed medications. 01/18/2025 Other [facility] (current) drug therapy (ICD-10 - Z79.899) 1. depression Sertraline 75 mg daily 2. Anxiety Sertraline 75 mg daily 3. Panic Sertraline 75 mg daily Vistaril 25 mg daily PRN and may take up to three times a day PRN patient reported taken few times educated on all medications, benefits, side effects and risk, and educated on depression, anxiety, and ADHD, mood d/o and educated on compliance of medications, metabolic and movement d/o education appointment is, continue therapy discussion with patient about course of treatment and patient instructions. education on serotonin syndrome SSRI/SNRI side effects discussed including but not limited to, gastric upset, nausea, vomiting, diarrhea and/or constipation, weight changes, sexual side effects including loss of libido, increased suicidal thoughts/behavi ors in children and young adults, and serotonin syndrome. Medication Management and Follow-Up - Plan: - Schedule follow-up appointments every 1-3 months to monitor the patient's response to the medication regimen. - Reinforce the importance of avoiding recreational drug use due to potential neurotoxicity and interactions with prescribed medications. 01/18/2025 Encounter for screening for cardiovascular disorders (ICD-10 - Z13.6) 1. depression Sertraline 75 mg daily 2. Anxiety Sertraline 75 mg daily 3. Panic Sertraline 75 mg daily Vistaril 25 mg daily PRN and may take up to three times a day PRN patient reported taken few times educated on all medications, benefits, side effects and risk, and educated on depression, anxiety, and ADHD, mood d/o and educated on compliance of medications, metabolic and movement d/o education appointment is, continue therapy discussion with patient about course of treatment and patient instructions. education on serotonin syndrome SSRI/SNRI side effects discussed including but not limited to, gastric upset, nausea, vomiting, diarrhea and/or constipation, weight changes, sexual side effects including loss of libido, increased suicidal thoughts/behavi ors in children and young adults, and serotonin syndrome. Medication Management and Follow-Up - Plan: - Schedule follow-up appointments every 1-3 months to monitor the patient's response to the medication regimen. - Reinforce the importance of avoiding recreational drug use due to potential neurotoxicity and interactions with prescribed medications. 01/18/2025 Panic disorder (ICD-10 - F41.0) 1. depression Sertraline 75 mg daily 2. Anxiety Sertraline 75 mg daily 3. Panic Sertraline 75 mg daily Vistaril 25 mg daily PRN and may take up to three times a day PRN patient reported taken few times educated on all medications, benefits, side effects and risk, and educated on depression, anxiety, and ADHD, mood d/o and educated on compliance of medications, metabolic and movement d/o education appointment is, continue therapy discussion with patient about course of treatment and patient instructions. education on serotonin syndrome SSRI/SNRI side effects discussed including but not limited to, gastric upset, nausea, vomiting, diarrhea and/or constipation, weight changes, sexual side effects including loss of libido, increased suicidal thoughts/behavi ors in children and young adults, and serotonin syndrome. Medication Management and Follow-Up - Plan: - Schedule follow-up appointments every 1-3 months to monitor the patient's response to the medication regimen. - Reinforce the importance of avoiding recreational drug use due to potential neurotoxicity and interactions with prescribed medications. 10/19/2024 Other Learning About Depression Screening material was printed, Hydroxyzine material was published 1. Generalized Anxiety Disorder (GEMA) - GEMA-7: 6 - Patient reports increased anxiety with a score of 8/10, feeling on edge of panic attack. - Missed three recent therapy sessions, potentially contributing to anxiety. - Plan: a. Prescribe hydroxyzine as needed up to three times daily for anxiety. b. Educate patient on medication effects and potential side effects. c. Encourage resuming regular therapy sessions with Joaquín Szymanski. d. refill sertraline for 90-days 2. Major Depressive Disorder (MDD) - PHQ-9: 4 - BDI: 21 - Patient reports moderate depression with a score of 6-7/10, likely situational. - Plan: a. Continue sertraline 50 mg and 25 mg. b. Provide 90-day supply to improve medication adherence. c. Monitor depressive symptoms and adjust treatment plan as needed during follow-ups. d. continue therapy sessions with Joaquín Szymanski. 3. Irritable Bowel Syndrome (IBS) - Patient reports history of IBS since age 25, linked to anxiety and depression. - Plan: a. Educate patient on connection between IBS and anxiety/depres samantha. b. Encourage tracking IBS episodes and their correlation with mood changes. c. Recommend discussing IBS management with primary care provider or gastroenterolo gist. 4. Sleep disturbances - Patient reports waking up earlier than usual and difficulty falling back asleep. - Plan: a. Encourage practicing good sleep hygiene. b. Consider discussing sleep issues with therapist. c. Monitor sleep disturbances during follow-up appointments. 5. Medication management - Patient reports running low on sertraline 25 mg and 50 mg. - Plan: a. Refill sertraline prescription with 90-day supply. b. Send prescription to patient's preferred pharmacy ([facility]). c. initiate hydroxyzine 25 mg TID PRN. 6. Follow-Up - Schedule follow-up appointment in three months. - Assess progress and adjust treatment plan as needed. - Encourage maintaining regular therapy sessions with therapist. Plan Of Treatment No Information Insurance Providers Payer Name Payer Address Payer Phone Subscriber Number Group Number Insured Name Patient Relationship to Insured Coverage Start Date Coverage End Date [facility] [address] [place] [address] [id number] ARIN HAMILTON Spouse - patient is the spouse of the insured Medical (General) History Medical History History ICD Code Problems: Generalized anxiety disorder Long-term drug therapy Major depressive disorder Past Psychiatric History: Anxiety Disord er,Major Depressive Episode irritable bowel syndrome
--- OUTSIDE RECORDS SUMMARY | 2025-05-04 12:06 | XMS_ITS | Encounter Summary ---
Author Organization [facility] Healthcare Address [address] [place] [id number] Care Team Providers Care Orchestra Director Name Role Phone Jayme Tenorio MD Primary Care Provider [phone] Aziza Wheat NP Unavailable [phone] Gera Rea MD Unavailable [phone] Del Boyer MD Unavailable [phone] Reason for Visit * Reason Onset Date Comments Back Pain 04/30/2025 Encounter Details Date Type Department Care Team (Late st Contact Info) Description 05/04/2025 Nurse Triage [facility] Primary Care at [address] [address] Venecia Velazquez RN Social History Tobacco Use Types Packs/Day Years [...] 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 Pt was seen by his chiropractor this morning and was sent to have x-rays. Pt is currently sitting in the waiting room at Dr Tenorio's office but was advised to contact [employer] [employer] for evaluation. Pt is able to walk and bear weight with increased pain. Pain radiates down R leg and into groin area at times. Pt denies numbness and tingling. Pt states pain does not feel the same as kidney stone pain. SDA scheduled at [address] Tenorio. Pt is comfortable with the plan and will call with worsening sx's. Care advice given including Tylenol/Ibuprofen as directed and ice/heat to area. Pt verbalized understanding. Disposition See Today in Office Reason for Disposition SEVERE back pain (e.g., excruciating, unable to do any normal activities) and not improved after pain medicine and CARE ADVICE Protocols Used Back [id number]-MQ * Telephone Encounter - Venecia Velazquez RN - 05/04/2025 9:33 AM CDT Regarding: Severe lower back pain ----- Message from Arielle Mace sent at 05/04/2025 9:33 AM CDT ----- Symptom Based Call Chief Complaint(s): Severe lower back pain Duration: Friday got worse yesterday What type of symptom(s) is the patient experiencing? Red Flag. Is the patient concerned they are experiencing a medical emergency requiring an ambulance? No Additional Comments: Pt called to see if he can get in for an appt today or see if pain meds can besent in.He has been experiencing severe back pain since Friday can hardly walk. Currently was at chiropractor they would not touch him they sent him for x-rays. Which he is getting currently he stated he may not answer the first time if he is in x-ray. Does message need to be routed? Yes-Action Needed documented in this encounter Plan of Treatment Not on file documented as of this encounter Visit Diagnoses Not on filedocumented in this encounter Care Teams Orchestra Director Relationship Specialty Start Date End Date Jayme Tenorio MD [address] [facility] [address] [place] [address] PCP - General Family Medicine 03/11/23 Aziza Wheat NP [address] [facility] [address] [place] [address] Nurse Practitioner Nurse Practitioner 03/11/23 Gera Rea MD [address] [facility] [address] [place] [address] Referring Physician Gastroenterology 03/11/23 Del Boyer MD [address] [place] [address] Consulting Physician Urology 12/09/24 documented as of this encounter
--- OUTSIDE RECORDS SUMMARY | 2025-05-04 12:06 | XMS_ITS | Clinical Summary ---
Author Organization [facility] [place] [address] [place] Address [address] [place] [address] Care Team Providers Care Track Dresser Name Role Phone Jayme Tenorio MD Primary Care Provider [phone] Aziza Wheat NP Unavailable [phone] Gera Rea MD Unavailable [phone] Del Boyer MD Unavailable [phone] Allergies No known active allergies Medications sertraline (ZOLOFT) 25 mg tablet 01/21/2023 Active sertraline (ZOLOFT) 50 mg tablet 01/21/2023 Active hydrOXYzine (VISTARIL) 25 mg capsule TAKE 1 CAPSULE BY MOUTH THREE TIMES DAILY NEEDED Active Active Problems Problem Noted Date Diagnosed Date GEMA (generalized anxiety disorder) 12/09/2024 MDD (major depressive disord er), recurrent episode, moderate 12/09/2024 Ureteral stricture, left 12/09/2024 Calculus of kidney 12/09/2024 Irritable bowel syndrome without diarrhea 2022 Assessment & Plan (06/13/2023 10:03 PM CDT): Viberzi trial May use imodium 2 mg before meals and PRN when in stressful situations, but that should be obviated by the Viberzi. Add probiotic to regimen Encouraging higer-fiber intake as well Peppermint oil is gastric supplement with some efficacy with IBS, I would encourage that one as well Encounter for medical examination to establish c are 03/11/2023 Assessment & Plan (03/17/2023 11:42 AM CDT): A(n) initial well visit to establish care has been performed today. Juan Carlos Perez is not up to date on screening tests. He is in need of Colon cancer screening and Cholesterol screening. He is not up to date on needed preventative vaccinations; He is in need of Covid-19 (booster). We discussed healthy lifestyle habits, educational material has been given. Medications reviewed, changes documented as per the medical record and discussed with patient along with risks vs benefits. Return in 3 months Encounters Date Type Department Care Team Description 05/04/2025 11:45 AM CDT Office Visit [facility] Primary Care at [address] [address] Jayme Tenorio MD Arrived 05/04/2025 9:27 AM CDT Hospital Encounter [address] [address] Right-sided low back pain with bilateral sciatica, unspecified chronicity 05/04/2025 Nurse Triage [facility] Primary Care at [address] [address] Venecia Velazquez RN from Last 3 Months Immunizations Immunization Administration Dates Next Due Influenza, Quadrivalent, Spl it, Preservative Free, Intramuscular 06/02/2020 Influenza, Unspecified 12/10/2023(Deferr ed: Patient Refused),09/15/2022(Deferred: Patient Refused),09/15/2021(Deferred: Patient Refused) Tdap 06/11/2023 Surgical History Surgery Date Site/Laterality Comments URETERAL STENT PLACEMENT 09/15/2023 - 09/14/2024 Medical History Medical History Date Comments Depression Anxiety Irritable bowel syndrome 1998 diarrhe a-predominant Ureteral stricture, left 12/09/2024 Calculus of kidney 12/09/2024 Social History Tobacco Use Types Packs/Day Years [...] 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 Not on file Not on file Obstetrics History Last Filed Vital Signs Vital Sign Reading Time Taken Comments Blood Pressure 130/80 12/09/2024 8:14 AM CDT Pulse 72 12/09/2024 8:14 AM CDT Temperature 36.4 C (97.5 F) 12/09/2024 8:14 AM CDT Respiratory Rate 16 12/09/2024 8:14 AM CDT Oxygen Saturation 96% 12/09/2024 8:14 AM CDT Inhaled Oxygen Concentration - - Weight 94.8 kg (209 lb) 12/09/2024 8:14 AM CDT Height 180.3 cm (5' 11) 12/09/2024 8:14 AM CDT Body Mass Index 29.15 12/09/2024 8:14 AM CDT Plan of Treatment Health Maintenance Due Date Last Done Comments Regular Well Visit/Exam 18-64 12/09/2025 12/09/2024, 03/11/2023 Depression Screening 05/04/2026 05/04/2025, 12/09/2024, 04/07/2024, Additional history exists Colon Cancer Screening-Colonoscopy 10/02/2026 10/02/2016 DTaP/Tdap/Td Vaccine (3 - Td or Tdap) 06/11/2033 06/11/2023, 01/05/2013 Influenza Vaccine Discontinued 06/02/2020 Covid-19 Vaccine Discontinued 01/02/2021, , 12/11/2020 Hepatitis B Screening Completed 12/09/2024 Hepatitis C Screening Completed 12/09/2024 Pneumococcal vaccine <65 Aged Out No longer eligible based on patient's age to complete this topic Procedures Procedure Name Priority Date/Time Associated Diagnosis Comments HEPATITIS C ANTIBODY Routine 12/09/2024 12:00 PM CDT Need for hepatitis C screening test COLONOSCOPY Routine 10/02/2016 from Last 3 Months or Most Recently Relevant to Health Maintenance Results * Hepatitis C antibody Blood (12/09/2024 12:00 PM CDT) Hep C Ab Nonreactive Nonreactive Comment: Interpretive Data Nonreactive: Antibodies to HCV not detected. Does NOT exclude the possibility of recent exposure to HCV. Equivocal: Equivocal for HCV antibodies. Supplemental molecular testing will be automatically performed to determine infection status in accordance with current CDC screening recommendations. Reactive: Positive for HCV antibodies. This may represent current or past HCV infection. Supplemental molecular testing will be automatically performed to determine current infection status in accordance with current CDC screening recommendations. Interpretive data was last revised on 2019. Blood 12/09/2024 12:0 0 PM CDT 12/09/2024 7:00 PM CDT Jayme Tenorio MD LAB MICROBIOLOGY - GENERAL ORDERABLES Final Result [facility] [id number] [facility] [place] [address] * COLONOSCOPY (10/02/2016) Scribed Colonoscopy Abnormal 10/02/2016 Historical Provider HEALTH MAINTENANCE Final Result from Last 3 Months or Most Recently Relevant to Health Maintenance Insurance [facility] Care Teams Track Dresser Relationship Specialty Start Date End Date Jayme Tenorio MD [address] [facility] [address] [place] [address] PCP - General Family Medicine 03/11/23 Aziza Wheat NP [address] [place] [address] Nurse Practitioner Nurse Practitioner 03/11/23 Gera Rea MD [address] [place] [address] Referring Physician Gastroenterology 03/11/23 Del Boyer MD [address] [place] [id number] Consulting Physician Urology 12/09/24
[2025-05-04 12:17] VITALS: BP 123/89; PULSE 80; RESP 20; TEMP 37.2; O2SAT 99
--- OUTSIDE RECORDS SUMMARY | 2025-05-04 13:19 | XMS_ITS | Clinical Summary ---
Author Organization [facility] [place] [address] [place] Address [address] [place] [phone] Care Team Providers Care Cabinet Worker Name Role Phone Jayme Tenorio MD Primary Care Provider [phone] Aziza Wheat NP Unavailable [phone] Gera Rea MD Unavailable [phone] Del Boyer MD Unavailable [phone] Allergies No known active allergies Medications sertraline [...] Description 05/04/2025 11:45 AM CDT Office Visit [facility] Primary Care at [address] [phone] Jayme Tenorio MD Arrived 05/04/2025 9:27 AM CDT Hospital Encounter [address] [address] Right-sided low back pain with bilateral sciatica, unspecified chronicity 05/04/2025 Nurse Triage [facility] Primary Care at [address] [phone] Venecia Velazquez RN from Last 3 Months [...] 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 [...] LAB MICROBIOLOGY - GENERAL ORDERABLES Final Result [facility] [address] [facility] Department [place] [address] * COLONOSCOPY (10/02/2016) Scribed Colonoscopy Abnormal 10/02/2016 Historical Provider HEALTH MAINTENANCE Final Result from Last 3 Months or Most Recently Relevant to Health Maintenance Insurance [facility] PLUS [facility] PL[facility] Care Teams Cabinet Worker Relationship Specialty Start Date End Date Jayme Tenorio MD [address] [facility] [address] [place] [address] PCP - General Family Medicine 03/11/23 Aziza Wheat NP [address] [place] [address] Nurse Practitioner Nurse Practitioner 03/11/23 Gera Rea MD [address] [place] [address] Referring Physician Gastroenterology 03/11/23 Del Boyer MD [address] [place] [id number] Consulting Physician Urology 12/09/24
--- OUTSIDE RECORDS SUMMARY | 2025-05-04 13:20 | XMS_ITS | Encounter Summary ---
Author Organization [facility] Address [address] [place] [address] Care Team Providers Care Esthetics Instructor Name Role Phone Jayme Tenorio MD Primary Care Provider [phone] Aziza Wheat NP Unavailable [phone] Gera Rea MD Unavailable [phone] Del Boyer MD Unavailable [phone] Reason for Visit * Reason Onset Date Comments Back Pain 04/30/2025 Encounter Details Date Type Department Care Team (Late st Contact Info) Description 05/04/[address] 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 Pt is able to walk [...] medicine and CARE ADVICE Protocols Used Back [id number] * Telephone Encounter - Venecia Velazquez RN [...] on filedocumented in this encounter Care Teams Esthetics Instructor Relationship Specialty Start Date End Date Jayme Tenorio MD [address] [facility] [address] [place] [address] PCP - General Family Medicine 03/11/23 Aziza Wheat NP [address] [facility] [address] [place] [address] Nurse Practitioner Nurse Practitioner 03/11/23 Gera Rea MD [address] [facility] [address] [place] [address] Referring Physician Gastroenterology 03/11/23 Del Boyer MD [address] [place] [address] Consulting Physician Urology 12/09/24 documented as of this encounter
[2025-05-04] MEDS: dexAMETHasone SOD PHOS INJ 10 MG/ML 1 ML VIAL IV PUSH (13:34)
[2025-05-04] MEDS: MORPHINE SULFATE (*CRX) 4 MG/ML INJ IV PUSH (13:34)
[2025-05-04] MEDS: LIDOCAINE 5% PATCH 1 PATCH TRANSDERM (13:35)
[2025-05-04 13:36] LABS: Hematocrit 41.6 % (42.0-52.0); Hemoglobin 14.3 g/dL (14.0-18.0); Immature Granulocyte Percent A 0.6 % (0-0.5); Lymphocytes Absolute Auto 1.16 K/mm3 (0.9-3.2); Mean Corpuscular HGB Conc 34.4 g/dl (32-36); Mean Corpuscular Hemoglobin 29.0 pg (26-34); Mean Corpuscular Volume 84.4 fl (80-100); Nucleated Red Blood Cells Absolute Auto 0.000 K/mm3 (0.0-0.012); Nucleated Red Blood Cells Perc 0.0 % (0.0-0.2); Platelet Count Result 180 k/mm3 (150-375); Red Blood Count 4.93 M/mm3 (4.6-6.20); White Blood Count 4.7 K/mm3 (4.5-10.0)
[2025-05-04 13:41] LABS: Add Urine Microscopic? NO; Appearance Urine Clear (Clear); Glucose Urine UA Negative (Negative); Leukocyte Esterase Ur Negative LEU/UL (Negative); Nitrate Urine Negative (Negative); Specific Grav Ur 1.006 (1.001-1.035)
[2025-05-04 13:42] LABS: Alanine Aminotransferase 34 U/L (6-50); Albumin Level 4.5 g/dL (3.5-5.1); Alkaline Phosphatase 69 U/L (38-126); Anion Gap 4 mmol/L (4-12); Aspartate Amino Transferase 29 U/L (17-59); Bilirubin,Total 1.3 mg/dL (0.2-1.3); Blood Urea Nitrogen 11 mg/dL (9-20); Calcium 9.2 mg/dL (8.4-10.2); Carbon Dioxide 31 mmol/L (22-30); Chloride 102 mmol/L (98-107); Estimated CRCL calculation 76 ml/min; Estimated Glomerular Filt Rate > 60; Glucose 104 mg/dL (65-110); Lipase 190 U/L (23-300); Potassium 3.8 mmol/L (3.4-5.0); Sodium 137 mmol/L (137-145); Total Protein 6.9 g/dL (6.3-8.2)
[2025-05-04] MEDS: ORPHENADRINE CITRATE 100 MG TABLET.ER PO (14:02)
--- NOTE | 2025-05-04 14:25 | ED.GENADULT ---
HPI - General Adult General Chief complaint: Back Pain/Injury Stated complaint: Lower back pain since Friday-moving Furniture Time Seen by Provider: 05/04/25 12:32 History of Present Illness HPI narrative: Patient 50-year-old gentleman who presents emergency department chief complaint of low back pain. Patient reports that on Friday he moved some furniture in his started having pain in his low back area of patient reports that he has spasms the developed min reports that he was going to the chiropractor and then went to his doctor today to get x-rays and had a severe spasm and was told to come to the emergency department. Patient reports no bowel or bladder incontinence does report that he has had pain radiating into the right portion of his scrotum patient states that he has had kidney stones in the past and reports that he felt very nauseated whenever he started having severe pain the patient denies footdrop denies paresthesias down the leg Related Data Home Medications ?Medication ?Instructions ?Recorded ?Confirmed ?Last Taken ?Type sertraline 50 mg tablet 75 mg PO DAILY 12/25/21 06/11/24 06/14/24 History budesonide-formoterol HFA 160 2 inh inhalation BID PRN Dyspnea 06/11/24 06/11/24 Unknown History mcg-4.5 mcg/actuation aerosol inhaler (Symbicort) Allergies Allergy/AdvReac Type Severity Reaction Status Date / Time vilazodone (Viibryd) AdvReac Unknown nausea, Verified 06/11/24 15:02 skin crawling, fatigue Review of Systems Review of Systems: A 10 system review of systems was completed on the patient and is negative except for what is stated in the HPI. Nursing and ancillary documentation was reviewed. [facility] Social History Social History Smoking status: Never smoker Alcohol intake: never Living arrangements: with family Spiritual care concerns: No Exam Narrative: GENERAL: Well-appearing, well-nourished, and in no acute distress. HEAD: Normocephalic, atraumatic. EYES: PERRLA and EOMI. ENT: Nares clear, no rhinorrhea or epistaxis. Mucous membranes moist. NECK: Supple. CHEST: Clear to auscultation. No respiratory distress. HEART: Regular rate and rhythm. No murmur heard. Normal peripheral pulses. ABDOMEN: Soft, nontender, nondistended, normal active bowel sounds. EXTREMITIES: Normal range of motion. No edema. SKIN: Warm, dry, no rash. NEURO: No focal deficits. Alert and oriented x3. no saddle anesthesia no footdrop PSYCH: Normal mood and affect. Course Vital Signs Vital signs: Vital Signs Temperature 37.2 C 05/04/25 12:17 Pulse Rate 80 05/04/25 12:17 Respiratory Rate 20 05/04/25 12:17 Blood Pressure 123/89 05/04/25 12:17 Pulse Oximetry 99 05/04/25 12:17 Oxygen Delivery Room Air 05/04/25 12:17 Temperature 37.2 C 05/04/25 12:17 Pulse Rate 80 05/04/25 12:17 Respiratory Rate 20 05/04/25 12:17 Blood Pressure 123/89 05/04/25 12:17 Pulse Oximetry 99 05/04/25 12:17 Oxygen Delivery Room Air 05/04/25 12:17 Medical Decision Making [facility] Narrative Medical decision making narrative: differential diagnosis includes lumbar radiculopathy, sciatica, cauda equina, kidney stone, testicular torsion CT scan showed no evidence kidney stone, no evidence of bony abnormality of the spine the patient has no saddle anesthesia no footdrop for signs of cauda equina patient decided he did not want to do the ultrasound of the scrotum for rule out torsion it was explained to the patient that we could miss a testicular torsion the patient expressed understand this and reported the return if he had worsening symptoms patient's pain was improved with anti-inflammatories muscle relaxers and steroids patient will be continued on these and will be instructed to follow-up with his primary care provider Vital Signs Vital Signs: Vital Signs Temperature 37.2 C 05/04/25 12:17 Pulse Rate 80 05/04/25 12:17 Respiratory Rate 05/04/25 12:17 Blood Pressure 123/89 05/04/25 12:17 Pulse Oximetry 99 05/04/25 12:17 Oxygen Delivery Room Air 05/04/25 12:17 Temperature 37.2 C 05/04/25 12:17 Pulse Rate 80 05/04/25 12:17 Respiratory Rate 20 05/04/25 12:17 Blood Pressure 123/89 05/04/25 12:17 Pulse Oximetry 99 05/04/25 12:17 Oxygen Delivery Room Air 05/04/25 12:17 Lab Data 05/04/25 13:20 05/04/25 13:20 Labs: Lab Results 05/04/25 Range/Units 13:20 WBC 4.7 (4.5-10.0) K/mm3 RBC 4.93 (4.6-6.20) M/mm3 Hgb 14.3 (14.0-18.0) g/dL Hct 41.6 L (42.0-52.0) % MCV 84.4 (80-100) fl MCH 29.0 (26-34) pg MCHC 34.4 (32-36) g/dl RDW 11.9 (11.5-14.5) % Plt Count 180 (150-375) k/mm3 MPV 9.1 (7.4-10.4) fl Immature Gran % (Auto) 0.6 H (0-0.5) % Neut % (Auto) 62.4 (45.5-73.1) % Lymph % (Auto) 24.9 (18.3-44.2) % [place] % (Auto) 8.4 (2.6-8.5) % Eos % (Auto) 2.8 (0-4.4) % Baso % (Auto) 0.9 (0.2-1.2) % Lymph # (Auto) 1.16 (0.9-3.2) K/mm3 [place] # (Auto) 0.4 (0.1-0.6) K/mm3 Eos # (Auto) 0.1 (0-0.3) K/mm3 Baso # (Auto) 0.0 (0.0-0.1) K/mm3 Abs Immat Gran (auto) 0.03 (0.00-0.031) K/mm3 Absolute Neuts (auto) 2.9 (1.3-6.7) K/mm3 Absolute Nucleated RBC 0.000 (0.0-0.012) K/mm3 Nucleated RBC % 0.0 (0.0-0.2) % Sodium 137 (137-145) mmol/L Potassium 3.8 (3.4-5.0) mmol/L Chloride 102 (98-107) mmol/L Carbon Dioxide 31 H (22-30) mmol/L Anion Gap 4 (4-12) mmol/L BUN 11 (9-20) mg/dL Creatinine 1.14 (0.7-1.3) mg/dL Estim Creat Clear Calc 76 ml/min Estimated GFR > 60 (59 - ) Glucose 104 (65-110) mg/dL Calcium 9.2 (8.4-10.2) mg/dL Total Bilirubin 1.3 (0.2-1.3) mg/dL AST 29 (17-59) U/L ALT 34 (6-50) U/L Alkaline Phosphatase 69 (38-126) U/L Total Protein 6.9 (6.3-8.2) g/dL Albumin 4.5 (3.5-5.1) g/dL Lipase 190 (23-300) U/L Urine Color Yellow (Yellow) Urine Appearance Clear (Clear) Urine pH 6.5 (5.0-9.0) Ur Specific Tava[place] 1.006 (1.001-1.035) Urine Protein Negative (Negative) mg/dL Urine Glucose (UA) Negative (Negative) mg/dL Urine Ketones Negative (Negative) mg/dL Ur Blood (Man) Negative (Negative) Urine Nitrate Negative (Negative) Urine Bilirubin Negative (Negative) Urine Urobilinogen 0.2 (<2.0) mg/dL Leukocyte Esterase Rfl Negative (Negative) SESAR/UL Discharge Plan Discharge Clinical Impression: Low back pain Patient Disposition: Home Condition: Stable Instructions: Antibiotic Form, Acute Low Back Pain (ED) Patient Language: Kazakh Prescriptions: New prednisone 20 mg tablet 40 mg PO DAILY 5 Days Qty: 10 0RF cyclobenzaprine 10 mg tablet 10 mg PO TID PRN (Reason: muscle spasm) Qty: 21 0RF hydrocodone-acetaminophen 5-325 mg tablet 1 tablet PO Q6H PRN (Reason: pain) 3 Days Qty: 12 0RF lidocaine [Lidoderm] 5 % adhesive patch,medicated 1 patch topical DAILY Qty: 15 0RF Rx Instructions: leave on most painful area for up to 12 hrs diclofenac potassium 50 mg tablet 50 mg PO TID PRN (Reason: pain) Qty: 30 0RF No Action sertraline 50 mg tablet 75 mg PO DAILY Rx Instructions: Takes at HS budesonide-formoterol [Symbicort] 160-4.5 mcg/actuation HFA aerosol inhaler 2 inh inhalation BID PRN (Reason: Dyspnea) sulfamethoxazole-trimethoprim [Bactrim DS] 800-160 mg tablet 1 tablet PO Q12H Qty: 6 0RF tramadol 50 mg tablet 50 mg PO Q6H PRN (Reason: pain) Qty: 10 0RF tramadol 50 mg tablet 50 mg PO Q6H PRN (Reason: pain) Qty: 20 0RF oxybutynin chloride 5 mg tablet 5 mg PO TID PRN (Reason: bladder spasms) Qty: 60 0RF Follow-up/Referrals: Coby,Jayme Reyes MD [Primary Care Provider, Unknown] Time of Disposition: 14:59
== END 2025-05-04 15:21 | disposition home or self-care (01) ==
PROVIDERS: Emergency Provider Emergency Medicine; PCP Family Medicine
DX: S39.92XA Unspecified injury of lower back, initial encounter (principal); Z87.442 Personal history of urinary calculi; X50.0XXA Overexertion from strenuous movement or load, initial encounter
CPT/HCPCS: 36415; 72131; 74176; 80053; 81003; 83690; 85025; 96374; 96375; 99284; A9270; J1100; J2270